=== PATIENT | male | born 1955 | race Caucasian/White ===

== ENCOUNTER 2019-06-10 20:54 | Observation (INO) ==
[2019-06-10] MEDS ORDERED: ONDANSETRON INJ 2 MG/ML 2 ML VIAL IV STA (21:25)
[2019-06-10] MEDS ORDERED: MECLIZINE HCL 25 MG TAB PO STA (21:25)
[2019-06-10] MEDS ORDERED: ACETAMINOPHEN 325 MG TAB PO STA (21:25)
[2019-06-10] MEDS ORDERED: SODIUM CHLORIDE 0.9% 1000ML 1,000 ML IV SCH (21:30)
--- NOTE | 2019-06-10 21:43 | XRay Report ---
XR chest 1V portable CLINICAL HISTORY: weakness COMPARISON STUDY: No previous studies for comparison. FINDINGS: Lung volumes are normal. Lungs are clear. There is no pneumothorax or pleural effusion. Car diac size is at the upper limits of normal. Mediastinal contours are normal. There is no evidence for pulmonary edema. IMPRESSION: No acute cardiopulmonary findings. Electronically signed by: Ancelmo Maria M.D. 06/10/2019 9:42 PM
--- NOTE | 2019-06-10 21:59 | CT Scan Report ---
CT OF THE HEAD WITHOUT CONTRAST CLINICAL HISTORY: dizziness, vertigo COMPARISON STUDY: No previous studies for comparison. CT DOSE: 537.48 mGy.cm TECHNIQUE: Helical axial images of the head were obtained without IV contrast. Automated exposure con trol was utilized for the study. A dose lowering technique was utilized adhering to the principles o f ALARA. FINDINGS: No acute intracranial hemorrhage, midline shift or mass effect is present. The ventricular system is unremarkable. The basilar cisterns are patent. No extra-axial collections are present. Ther e are no findings to suggest acute dural sinus thrombosis or acute territorial infarct. No significan t calvarial abnormalities are present. Mastoid air cells are clear. There is mild ethmoid sinus mucos al thickening. IMPRESSION: No acute intracranial findings. Electronically signed by: Ancelmo Maria M.D. 06/10/2019 9:58 PM
[2019-06-10 22:02] LABS: Basophils # (auto) 0.01 K/uL (0-0.2); Basophils % (auto) 0.1 %; Eosinophils # (auto) 0.18 K/uL (0-0.5); Eosinophils % (auto) 1.2 %; Hematocrit (blood only) 42.7 % (42-52); Hemoglobin 15.2 g/dL (14.0-18.0); Immature Granulocytes # (auto) 0.06 K/uL (0.00-0.02); Immature Granulocytes % (auto) 0.4 %; Lymphocytes # (auto) 1.24 K/uL (1.2-3.4); Lymphocytes % (auto) 8.5 %; Mean Corpuscular Hemoglobin 32.6 pg (25-34); Mean Corpuscular Hgb Conc 35.6 g/dL (32-36); Mean Corpuscular Volume 91.6 fL (80-100); Mean Platelet Volume 9.1 fL (7.4-10.4); Monocytes # (auto) 0.71 K/uL (0.11-0.59); Monocytes % (auto) 4.9 %; Neutrophils # (auto) 12.42 K/uL (1.4-6.5); Neutrophils % (auto) 84.9 %; Platelet Count 228 K/uL (130-400); RDW Coefficient of Variation 12.7 % (11.5-14.5); RDW Standard Deviation 42.3 fL (36.4-46.3); Red Blood Count 4.66 M/uL (4.7-6.1); White Blood Count 14.62 K/uL (4.8-10.8)
[2019-06-10 22:22] LABS: Alanine Aminotransferase 38 U/L (12-78); Albumin Level 3.7 gm/dl (3.4-5.0); Aspartate Aminotransferase 22 U/L (15-37); BUN Creatinine Ratio 27.4 (10-20); Blood Urea Nitrogen 27 mg/dl (7-18); Calcium 9.1 mg/dl (8.5-10.1); Carbon Dioxide 27 mmol/L (21-32); Chloride 105 mmol/L (98-107); Creatinine Clr Calc Pharmacy 86.9 ml/min; Est GFR (African American) 93.4; Est GFR (Non-African American) 80.6; Glucose 111 mg/dl (70-99); Potassium 3.8 mmol/L (3.5-5.1); Sodium 137 mmol/L (136-145)
[2019-06-10 22:33] LABS: Alkaline Phosphatase 92 U/L (45-117); Bilirubin,Total 0.6 mg/dl (0.2-1); Globulin 3.6 gm/dl (2.5-4.0); Total Protein 7.3 gm/dl (6.4-8.2); Troponin I < 0.015 ng/ml (0-0.045)
[2019-06-10] MEDS ORDERED: DiphenhydrAMINE HCL 50 MG/ML VIAL IV STA (23:07)
[2019-06-10] MEDS ORDERED: DEXAMETHASONE **PF** INJ 10 MG/ML VIAL IV ONE (23:07)
[2019-06-10] MEDS ORDERED: PROCHLORPERAZINE 2 ML IV ONE (23:07)
[2019-06-10] MEDS ORDERED: OPTIRAY 320 125ml IV PRN (23:13)
--- NOTE | 2019-06-11 01:01 | Emergency Department Note ---
Entered by Saul Foster acting as a scribe for Lucio Garduno MD History of Present Illness General Chief complaint: Vertigo Stated complaint: DIZZINESS, NAUSEA, WEAKNESS Time Seen by Provider: 06/10/19 21:03 Source: patient Limitations: no limitations History of Present Illness Onset (ago): hour(s) (this afternoon) Location: head Pain Consistency: + constant Quality: + other (spins) Exacerbated By: + other (opening eyes after keeping them closed) Associated symptoms: + denies other symptoms (heart racing) and + other (dry heaving) Treatments prior to arrival: none The patient is a 63 year-old white female w/ PMHx hyperlipidemia who presents to the ED w/ CC of dizziness beginning this afternoon. The patient states he was driving home from work when he started to get dizzy. He states he had lightheadedness. He notes he felt like his head was spinning. He states he got out of his truck and felt wobbly and nauseous. He notes he sat down on a bench for a while and closed his eyes. He states when he opened his eyes he felt more dizzy. He notes he was dry heaving. He notes he felt like he was going to pass out while driving to [facility]. The patient notes he did not get evaluated at [facility] and came by EMS to the ED. He states he did not receive any medications from EMS. He states he feels a little better right now. He states he had a prostate biopsy 4 days ago. The patient denies feeling like his heart was racing and having any concern for exposure of gas or carbon monoxide. 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 He states he was doing heavy lifting today. The patient states he takes cholesterol medic ations. Home Medications Home Medications Medication Instructions Recorded Confirmed Type diphenhydramine HCl [Allergy] 25 mg PO HS PRN 06/10/19 06/10/19 History pravastatin [Pravachol] 40 mg PO QPM 06/10/19 06/10/19 History terbinafine HCl 250 mg PO DAILY 06/10/19 06/10/19 History Allergies Allergy/AdvReac Type Severity Reaction Status Date / Time No Known Allergies Allergy Unverified 06/10/19 21:54 Past Med/Surg History Surgical History (Updated 06/11/19 @ 01:20 by Shavonne Vaca DO) History of hernia repair History of prostate biopsy Family History (Updated 06/11/19 @ 01:20 by Shavonne Vaca DO) Other Colorectal cancer Social History (Updated 06/11/19 @ 01:21 by Shavonne Vaca DO) Preferred Language: Dominican Beliefs That Will Affect Care: None Current Living Situation: Spouse Current Living Situation Comment: lives at home with spouse Feels Safe at Home: Yes Smoking Status: Never smoker Second Hand Exposure: No ; Hx Alcohol Use: No Hx Substance Use: No Review of Systems See HPI for pertinent positives & negatives. and A total of 10 systems reviewed and were otherwise negative Physical Exam Vital Signs Vital Signs - 24 hr 06/10/19 20:54 06/10/19 22:10 06/10/19 23:19 Temperature 36.4 C L Temperature Source Oral Pulse Rate 69 Pulse Rate [Right Finger] 78 79 Respiratory Rate 16 20 20 Respiratory Effort / Characteristics Non-Labored Spontaneous Respiratory Depth Normal Blood Pressure 144/90 H Blood Pressure [Left Arm] 136/86 144/93 H Blood Pressure Mean 108 Blood Pressure Mean [Left Arm] 102 110 Blood Pressure Position [Left Arm] Pulse Oximetry 98 97 95 Oxygen Delivery Method Room Air Room Air Room Air Sepsis Recent Fever Within 48 Hours No Sepsis New/Unexplained Change in Mental Status No Sepsis Action Taken by Nursing No Action Required 06/11/19 00:01 Temperature Temperature Source Pulse Rate Pulse Rate [Right Finger] 78 Respiratory Rate 20 Respiratory Effort / Characteristics Non-Labored Spontaneous Respiratory Depth Normal Blood Pressure Blood Pressure [Left Arm] 153/86 H Blood Pressure Mean Blood Pressure Mean [Left Arm] 108 Blood Pressure Position [Left Arm] Lying Pulse Oximetry 95 Oxygen Delivery Method Room Air Sepsis Recent Fever Within 48 Hours Sepsis New/Unexplained Change in Mental Status Sepsis Action Taken by Nursing GENERAL: Well appearing, well nourished, NAD, non-toxic. Wearing glasses. EYE EXAM: Normal conjunctiva. PERRL, no anisocoria and EOM's grossly intact w/o pain. OROPHARYNX: Moist mucous membranes. Normal dentition. NECK: Supple, no nuchal rigidity, no adenopathy, non-tender. no signs of meningismus. No cartoid bruits. LUNGS: Clear to auscultation. Normal chest wall mechanics. HEART: NSR, no MRG. ABDOMEN: Abdomen soft, non-tender, normo-active bowel sounds, no masses, no rebound or guarding. BACK: No CVA TTP. SKIN: No rashes and no bruising. UPPER EXTREMITIES: Upper extremities are grossly normal. LOWER EXTREMITIES: No pitting edema. No calf pain. NEURO EXAM: Cranial nerves II-XII grossly intact, normal speech. no sensory deficits, normal pronator drift. 5/5 strength throughout. Moves all 4 extremities on command w/o issue. Course Course 2112: The patient was evaluated in room C7, and a complete history and physical examination were performed. Patient was put on the laboratory monitor. 2244: I reevaluated the patient. He does not feel well. Administered Medications Acetaminophen (Tylenol) 650 mg PO Q4H PRN PRN Reason: pain/fever Stop: 07/11/19 01:52 Last Admin: 06/11/19 15:54 Dose: 650 mg Documented by: [id number] Aspirin (Ecotrin Ectab) 81 mg PO DAILY [facility] Stop: 07/11/19 08:59 Last Admin: 06/11/19 08:46 Dose: 81 mg Documented by: [id number] Gadobutrol (Gadavist 65ml) 8.2 ml IV ONCE PRN PRN Reason: Interaction Checking Stop: 06/15/19 03:33 Last Admin: 06/11/19 03:15 Dose: 8.2 ml Documented by: [id number] Ioversol (Optiray 320 125ml) 118 ml IV ONCE PRN PRN Reason: Interaction Checking Stop: 06/14/19 23:12 Last Admin: 06/10/19 23:14 Dose: 118 ml Documented by: [id number] Meclizine HCl (Antivert) 25 mg PO TID PRN PRN Reason: Dizziness or Vertigo Stop: 07/11/19 01:52 Last Admin: 06/11/19 13:30 Dose: 25 mg Documented by: [id number] Admin: 06/11/19 08:46 Dose: 25 mg Documented by: [id number] Ondansetron HCl (Zofran) 4 mg IV Q6H PRN PRN Reason: Nausea Stop: 07/11/19 01:52 Last Admin: 06/11/19 08:32 Dose: 4 mg Documented by: [id number] Terbinafine HCl (Lamisil) 250 mg PO DAILY [facility] Stop: 07/11/19 08:59 Last Admin: 06/11/19 08:46 Dose: 250 mg Documented by: [id number] Discontinued Medications Acetaminophen (Tylenol) 650 mg PO NOW STA Stop: 06/10/19 21:26 Last Admin: 06/10/19 22:08 Dose: 650 mg Documented by: [id number] Aspirin (Aspirin Chew) 324 mg PO NOW STA Stop: 06/11/19 01:57 Last Admin: 06/11/19 01:58 Dose: 324 mg Documented by: [id number] Dexamethasone Sodium Phosphate (Decadron Pf) 10 mg IV NOW ONE Stop: 06/10/19 23:08 Last Admin: 06/10/19 23:19 Dose: 10 mg Documented by: [id number] Diphenhydramine HCl (Benadryl) 25 mg IV NOW STA Stop: 06/10/19 23:08 Last Admin: 06/10/19 23:19 Dose: 25 mg Documented by: [id number] Sodium Chloride (Nss 1000ml) 1,000 mls @ 999 mls/hr IV .Q1H1M RE Stop: 06/10/19 22:30 Last Infusion: 06/10/19 23:11 Dose: 0 mls/hr Documented by: [id number] Admin: 06/10/19 22:08 Dose: 999 mls/hr Documented by: [id number] Prochlorperazine (Compazine) 2 mls @ 1 mls/min IV ONE ONE Stop: 06/10/19 23:08 Last Admin: 06/10/19 23:19 Dose: 1 mls/min Documented by: [id number] Meclizine HCl (Antivert) 25 mg PO NOW STA Stop: 06/10/19 21:26 Last Admin: 06/10/19 22:08 Dose: 25 mg Documented by: [id number] Ondansetron HCl (Zofran) 4 mg IV NOW STA Stop: 06/10/19 21:26 Last Admin: 06/10/19 22:08 Dose: 4 mg Documented by: [id number] Medical Decision Making Differential Diagnosis Differential diagnosis includes etiologies such as benign positional vertigo, dehydration, hypovolemia, anemia, tumor, infection, hypoglycemia, electrolyte abnormalities, cardiac sources, intracerebral event, toxicologic, neurologic, as well as others were entertained. Medical Records Attestation: I reviewed the patient's medical records. Home Medications Current Medication List: was personally reviewed by me Laboratory Data Attestation: I reviewed the patient's lab results. Result diagrams: 06/11/19 02:24 06/11/19 02:24 Lab Results 06/10/19 06/10/19 Range/Units 21:45 21:45 WBC 14.62 H (4.8-10.8) K/uL RBC 4.66 L (4.7-6.1) M/uL Hgb 15.2 (14.0-18.0) g/dL Hct 42.7 (42-52) % MCV 91.6 (80-100) fL MCH 32.6 (25-34) pg MCHC 35.6 (32-36) g/dL RDW Std Deviation 42.3 (36.4-46.3) fL RDW Coeff of Belkis 12.7 (11.5-14.5) % Plt Count 228 (130-400) K/uL MPV 9.1 (7.4-10.4) fL Immature Gran % (Auto) 0.4 % Neut % (Auto) 84.9 % Lymph % (Auto) 8.5 % [place] % (Auto) 4.9 % Eos % (Auto) 1.2 % Baso % (Auto) 0.1 % Immature Gran # (Auto) 0.06 H (0.00-0.02) K/uL Neut # (Auto) 12.42 H (1.4-6.5) K/uL Lymph # (Auto) 1.24 (1.2-3.4) K/uL [place] # (Auto) 0.71 H (0.11-0.59) K/uL Eos # (Auto) 0.18 (0-0.5) K/uL Baso # (Auto) 0.01 (0-0.2) K/uL Sodium 137 (136-145) mmol/L Potassium 3.8 (3.5-5.1) mmol/L Chloride 105 (98-107) mmol/L Carbon Dioxide 27 (21-32) mmol/L Anion Gap 5.0 (3-11) BUN 27 H (7-18) mg/dl Creatinine 0.98 (0.6-1.4) mg/dl Est Cr Clr Drug Dosing 86.9 ml/min Est GFR ( Amer) 93.4 Est GFR (Non-Af Amer) 80.6 BUN/Creatinine Ratio 27.4 H (10-20) Glucose 111 H (70-99) mg/dl Calcium 9.1 (8.5-10.1) mg/dl Total Bilirubin 0.6 (0.2-1) mg/dl AST 22 (15-37) U/L ALT 38 (12-78) U/L Alkaline Phosphatase 92 (45-117) U/L Troponin I < 0.015 (0-0.045) ng/ml Total Protein 7.3 (6.4-8.2) gm/dl Albumin 3.7 (3.4-5.0) gm/dl Globulin 3.6 (2.5-4.0) gm/dl Albumin/Globulin Ratio 1.0 (0.9-2) TSH 2.180 (0.300-4.500) uIu/ml Imaging Data Radiologist's Impression: Radiology results as stated below per my review and the radiologist's interpretation: XR chest 1V portable CLINICAL HISTORY: weakness COMPARISON STUDY: No previous studies for comparison. FINDINGS: Lung volumes are normal. Lungs are clear. There is no pneumothorax or pleural effusion. Cardiac size is at the upper limits of normal. Mediastinal contours are normal. There is no evidence for pulmonary edema. IMPRESSION: No acute cardiopulmonary findings. Electronically signed by: Ancelmo Maria M.D. 06/10/2019 9:[address] OF THE HEAD WITHOUT CONTRAST CLINICAL HISTORY: dizziness, vertigo COMPARISON STUDY: No previous studies for comparison. CT DOSE: 537.48 mGy.cm TECHNIQUE: Helical axial images of the head were obtained without IV contrast. Automated exposure control was utilized for the study. A dose lowering technique was utilized adhering to the principles of ALARA. FINDINGS: No acute intracranial hemorrhage, midline shift or mass effect is present. The ventricular system is unremarkable. The basilar cisterns are patent. No extra-axial collections are present. There are no findings to suggest acute dural sinus thrombosis or acute territorial infarct. No significant calvarial abnormalities are present. Mastoid air cells are clear. There is mild ethmoid sinus mucosal thickening. IMPRESSION: No acute intracranial findings. Electronically signed by: Ancelmo Maria M.D. 06/10/2019 9:[address] angio neck with con, CT angio head w con CLINICAL HISTORY: 63 years-old Male with vertigo, Lward nystagmus, neg CT head. Acute dizziness with vertigo COMPARISON STUDY: Head CT 06/10/2019, brain MRI 06/11/2019 TECHNIQUE: Following the IV administration of 118 mL of Optiray 320, CT angiogram of the head and neck was performed from the aortic arch to the skull base. Images are reviewed in the axial, sagittal, and coronal planes. 3-D MIPS images are created and assessed. IV contrast was administered without complication. All measurements were calculated based on NASCET criteria. A dose lowering technique was utilized adhering to the principles of ALARA. CT DOSE: 630.71 mGy.cm FINDINGS: The imaged opacified pulmonary arterial tree is unremarkable. Aortic arch and imaged bilateral subclavian arteries appear unremarkable. Bilateral common carotid arteries are patent. The right carotid bulb and right ICA are patent and unremarkable. Moderate atheromatous plaque at the left carotid bulb and proximal cervical segment left ICA results in 60% luminal narrowing (image 243 series 4). Mild luminal narrowing of less than 50% involves the [place] cervical segment left ICA at the level of C1, also likely secondary to atheromatous plaque. Bilateral middle and anterior cerebral arteries appear patent. Developmentally diminutive left A1 segment. The vertebral arteries are codominant and appear widely patent. The basilar and posterior cerebral arteries are also patent. Cerebral venous sinuses are patent and unremarkable. No abnormal intracranial enhancement. Age- related involutional changes are noted. Lung apices are clear. Soft tissues of the neck are unremarkable. Mild mucosal thickening of the maxillary and ethmoid sinuses. Degenerative changes are noted throughout the cervical spine. Mastoid air cells are clear. Multilevel deg enerative changes of the cervical spine, most pronounced at C5-C6 and C6-C7. IMPRESSION: 1. Atheromatous plaque of the left carotid bulb and proximal left ICA results in 60% luminal narrowing of the proximal left ICA. 2. Otherwise unremarkable CTA of the head and neck without aneurysm, dissection or proximal branch occlusion identified. 3. Mild paranasal sinus disease. ACT 112: Negative or not required by law. The above report was generated using voice recognition software. It may contain grammatical, syntax or spelling errors. Electronically signed by: Bobby Walton M.D. 06/11/2019 6:41 AM Dictated: 06/11/1934 Transcribed: 06/11/19631 CT angio neck with con, CT angio head w con CLINICAL HISTORY: 63 years-old Male with vertigo, Lward nystagmus, neg CT head. Acute dizziness with vertigo COMPARISON STUDY: Head CT 06/10/2019, brain MRI 06/11/2019 TECHNIQUE: Following the IV administration of 118 mL of Optiray 320, CT angiogram of the head and neck was performed from the aortic arch to the skull base. Images are reviewed in the axial, sagittal, and coronal planes. 3-D MIPS images are created and assessed. IV contrast was administered without complication. All measurements were calculated based on NASCET criteria. A dose lowering technique was utilized adhering to the principles of ALARA. CT DOSE: 630.71 mGy.cm FINDINGS: The imaged opacified pulmonary arterial tree is unremarkable. Aortic arch and imaged bilateral subclavian arteries appear unremarkable. Bilateral common carotid arteries are patent. The right carotid bulb and right ICA are patent and unremarkable. Moderate atheromatous plaque at the left carotid bulb and proximal cervical segment left ICA results in 60% luminal narrowing (image 243 series 4). Mild luminal narrowing of less than 50% involves the Est[place] cervical segment left ICA at the level of C1, also likely secondary to atheromatous plaque. Bilateral middle and anterior cerebral arteries appear patent. Developmentally diminutive left A1 segment. The vertebral arteries are codominant and appear widely patent. The basilar and posterior cerebral arteries are also patent. Cerebral venous sinuses are patent and unremarkable. No abnormal intracranial enhancement. Age- related involutional changes are noted. Lung apices are clear. Soft tissues of the neck are unremarkable. Mild mucosal thickening of the maxillary and ethmoid sinuses. Degenerative changes are noted throughout the cervical spine. Mastoid air cells are clear. Multilevel degenerative changes of the cervical spine, most pronounced at C5-C6 and C6-C7. IMPRESSION: 1. Atheromatous plaque of the left carotid bulb and proximal left ICA results in 60% luminal narrowing of the proximal left ICA. 2. Otherwise unremarkable CTA of the head and neck without aneurysm, dissection or proximal branch occlusion identified. 3. Mild paranasal sinus disease. ACT 112: Negative or not required by law. The above report was generated using voice recognition software. It may contain grammatical, syntax or spelling errors. Electronically signed by: Bobby Walton M.D. 06/11/2019 6:41 AM Dictated: 06/11/19631 Transcribed: 12/18/19 0632 ECG Data Attestation: I personally reviewed and interpreted this ECG as follows: Indication: + other (dizziness) Rate (beats per minute): 69 Rhythm: + normal sinus ECG Intervals/blocks: + Normal QRS, + Normal QT, + Normal MD and + Normal QT-c ECG [place]: + Normal ECG ST segments: no ST depression and no ST elevation ECG Findings: no PACs and no PVCs Blood Pressure Blood Pressure Findings: Elevated blood pressure Blood Pressure Disposition: Referred to patients primary care provider MDM Narrative The patient is a 63 year-old white female w/ PMHx hyperlipidemia who presents to the ED w/ CC of dizziness beginning this afternoon. Patient was seen and evaluated at the bedside. The patient did present with so me nausea and associated dizziness. After further discussion the patient did describe it more as the spins. The patient does have some leftward beating nystagmus but it does extinguish with looking to the right. The patient does not complain of any ear pain and no recent change in elevation or water activities. The patient also denies any sort of exposure i.e. gas or generator inside giving off fumes. The patient had a blood work completed along with an EKG. EKG does not appear to be acutely concerning no signs of ischemia. Troponin is negative. Blood work does show a mild white count with a normal H&H and platelet count. Patient may have some prerenal azotemia. The patient was given first round of medications upon reassessment the patient was nothing much improved so CT angios of the head and neck were ordered. The patient does have a very small amount of stenosis at the left carotid bulb but nothing that is concerning [place] flow-limiting that may be causing his symptoms. Given that the patient is still symptomatic and there has not been significant improvement I did speak the on-call hospitalist agreed to further evaluate treat the patient. Patient was admitted to the medicine service. Impression & Plan Vertigo, Weakness, Nystagmus, Dehydration Discharge Plan Visit Data *Final* Discharge Date/Time: 06/11/19 01:45 Chief Complaint: Vertigo Stated Complaint: DIZZINESS, NAUSEA, WEAKNESS ED Provider: Lucio Garduno Discharge Problem: Vertigo, Weakness, Nystagmus, Dehydration Patient Disposition: Admitted As Inpatient Discharge Instructions Interventions: ED Discharge Assessment Last Done: 06/11/19 01:45 The scribe's documentation has been prepared under my direction and personally reviewed by me in its entirety. I confirm that the note above accurately reflects all work, treatment, procedures, and medical decision making performed by me.
--- NOTE | 2019-06-11 01:32 | History & Physical Report ---
Date of Service June 11, 2019 Assessment & Plan (1) Vertigo: Suspect vertigo, less likely CVA/TIA -Observation to medical floor with telemetry -Check A1C with AM labs -Check MRI brain -ASA 81mg po daily -Continue Pravastatin 40mg po qPM -Meclizine 25mg po TID as needed Present on Admission?: Yes (2) Nystagmus: As above -ASA, Statin -MRI -Meclizine Present on Admission?: Yes (3) Hyperlipidemia: Continue Pravastatin F/E/N - Heplock. Monitor electrolytes. Heart healthy diet as tolerated Ppx - SCDs Code -Full Dispo - Observation to medical floor with telemetry History of Present Illness Chief Complaint: vertigo Primary Care Provider: NO PCP Kristopher Moreno is a 63yo C male with history of HLP presenting with dizziness, blurry vision and nausea. Patient was driving in his car around 18:30 last evening when he developed acute onset of severe dizziness, blurry vision and nausea. He went into a store and sat down for appx 30 minutes but his symptoms persisted. He then went to Urgent Care and was transported to [facility]. Currently still with complaint of dizziness and blurry vision. Difficulty with ambulation. He denies chest pain/palpitations/vomiting/diarrhea/constipation Denies numbness/tingling/weakness/headache Denies ear pain/aural fullness/hearing loss or tinnitus No recent illness, sick contacts or travel No additional complaints ER Course: Tylenol, Dexamethasone, Benadryl, Meclizine, Zofran, Compazine, NSS Allergies Allergy/AdvReac Type Severity Reaction Status Date / Time No Known Allergies Allergy Unverified 06/10/19 21:54 Home Medications Home Medications Medication Instructions Recorded Confirmed Type diphenhydramine HCl [Allergy] 25 mg PO HS PRN 06/10/19 06/10/19 History pravastatin [Pravachol] 40 mg PO QPM 06/10/19 06/10/19 History terbinafine HCl 250 mg PO DAILY 06/10/19 06/10/19 History Past Med/Surg History Medical History (Updated 06/11/19 @ 01:29 by Shavonne Vaca DO) Hyperlipidemia Surgical History (Updated 06/11/19 @ 01:20 by Shavonne Vaca DO) History of hernia repair History of prostate biopsy Family History (Updated 06/11/19 @ 01:20 by Shavonne Vaca DO) Other Colorectal cancer Social History (Updated 06/11/19 @ 01:21 by Shavonne Vaca DO) Preferred Language: Cambodian Feels Safe at Home: Yes Smoking Status: Never smoker Hx Alcohol Use: No Hx Substance Use: No Review of Systems Review of Systems: All systems reviewed & are unremarkable except as noted in HPI & below Physical Exam Physical Exam: General: patient resting comfortably, NAD, non-toxic in appearance, AA&O x 4 Skin: warm, dry, intact, no rashes or lesions HEENT: NC/AT, PERRL, EOMI with horizontal nystagmus to left, anicteric sclera, conjunctiva without injection, external ear normal to inspection and nontender, nares patent, moist mucus membranes, dentition intact, no oropharyngeal lesions, neck supple, trachea midline, no LAD, no thyromegaly, no JVD Heart: +S1/S2, regular, no m/r/g Lungs: equal air entry bilaterally, no rales/rhonchi/wheezes Abd: +BS, soft, NT/ND, no masses/organomegaly/ascites Ext: warm, 2+ pulses in UE/LE bilaterally, no clubbing/cyanosis or edema Neuro: nonfocal, patient AA&O x 4, speech intact, no facial droop, CN II - XII intact, sensation to light touch intact, moving all extremities on command with equal strength 5/5, [id number]-[id number] and mgpu-gr-hxxi intact bilaterally, gait unsteady and wide based Results & Data Vital Signs (Past 12 Hours) Vital Signs Temp Pulse Pulse Resp BP BP Pulse Ox 06/11/19 00:01 78 20 153/86 H 95 06/10/19 23:19 79 20 144/93 H 95 06/10/19 22:10 78 20 136/86 97 06/10/19 20:54 36.4 C L 69 16 144/90 H 98 Laboratory Results Lab Results 06/10/19 06/10/19 Range/Units 21:45 21:45 WBC 14.62 H (4.8-10.8) K/uL RBC 4.66 L (4.7-6.1) M/uL Hgb 15.2 (14.0-18.0) g/dL Hct 42.7 (42-52) % MCV 91.6 (80-100) fL MCH 32.6 (25-34) pg MCHC 35.6 (32-36) g/dL RDW Std Deviation 42.3 (36.4-46.3) fL RDW Coeff of Belkis 12.7 (11.5-14.5) % Plt Count 228 (130-400) K/uL MPV 9.1 (7.4-10.4) fL Immature Gran % (Auto) 0.4 % Neut % (Auto) 84.9 % Lymph % (Auto) 8.5 % [place] % (Auto) 4.9 % Eos % (Auto) 1.2 % Baso % (Auto) 0.1 % Immature Gran # (Auto) 0.06 H (0.00-0.02) K/uL Neut # (Auto) 12.42 H (1.4-6.5) K/uL Lymph # (Auto) 1.24 (1.2-3.4) K/uL [place] # (Auto) 0.71 H (0.11-0.59) K/uL Eos # (Auto) 0.18 (0-0.5) K/uL Baso # (Auto) 0.01 (0-0.2) K/uL Sodium 137 (136-145) mmol/L Potassium 3.8 (3.5-5.1) mmol/L Chloride 105 (98-107) mmol/L Carbon Dioxide 27 (21-32) mmol/L Anion Gap 5.0 (3-11) BUN 27 H (7-18) mg/dl Creatinine 0.98 (0.6-1.4) mg/dl Est Cr Clr Drug Dosing 86.9 ml/min Est GFR ( Amer) 93.4 Est GFR (Non-Af Amer) 80.6 BUN/Creatinine Ratio 27.4 H (10-20) Glucose 111 H (70-99) mg/dl Calcium 9.1 (8.5-10.1) mg/dl Total Bilirubin 0.6 (0.2-1) mg/dl AST 22 (15-37) U/L ALT 38 (12-78) U/L Alkaline Phosphatase 92 (45-117) U/L Troponin I < 0.015 (0-0.045) ng/ml Total Protein 7.3 (6.4-8.2) gm/dl Albumin 3.7 (3.4-5.0) gm/dl Globulin 3.6 (2.5-4.0) gm/dl Albumin/Globulin Ratio 1.0 (0.9-2) TSH 2.180 (0.300-4.500) uIu/ml Diagnostic Findings XR chest 1V portable CLINICAL HISTORY: weakness COMPARISON STUDY: No previous studies for comparison. FINDINGS: Lung volumes are normal. Lungs are clear. There is no pneumothorax or pleural effusion. Cardiac size is at the upper limits of normal. Mediastinal contours are normal. There is no evidence for pulmonary edema. IMPRESSION: No acute cardiopulmonary findings. Electronically signed by: Ancelmo Maria M.D. 06/10/2019 9:42 PM Dictated: 06/10/192140 Transcribed: 06/10/192140 CT OF THE HEAD WITHOUT CONTRAST CLINICAL HISTORY: dizziness, vertigo COMPARISON STUDY: No previous studies for comparison. CT DOSE: 537.48 mGy.cm TECHNIQUE: Helical axial images of the head were obtained without IV contrast. Automated exposure control was utilized for the study. A dose lowering technique was utilized adhering to the principles of ALARA. FINDINGS: No acute intracranial hemorrhage, midline shift or mass effect is present. The ventricular system is unremarkable. The basilar cisterns are patent. No extra-axial collections are present. There are no findings to suggest acute dural sinus thrombosis or acute territorial infarct. No significant calvarial abnormalities are present. Mastoid air cells are clear. There is mild ethmoid sinus mucosal thickening. IMPRESSION: No acute intracranial findings. Electronically signed by: Ancelmo Maria M.D. 06/10/2019 9:58 PM Dictated: 06/10/192154 Transcribed: 06/10/192154 CTA Head - Per STAT-rad - No acute intracranial hemorrhage, mass effect or edema. No evidence of acute cortical stroke. Mild periventricular small vessel ischemic change. No midline shift or hydrocephalus. Mild diffuse parenchymal atrophy for age. Visualized sinuses and mastoid air cells are clear. CTA Nect - Per STAT-rad - left carotid bulb short segment at least moderate narrowing for example on image 243 series 4. No other significant stenosis, thrombosis, aneurysm or dissection Code Status & VTE Plan Code Status Full VTE Prophylaxis Plan VTE Prophylaxis will be ordered: Yes PG Care Time/CCT Total # of Minutes Spent Total Time Spent with Patient: Total time spent is greater than 50% in coordination of care (as documented) at patient's floor/unit and/or counseling patient:
[2019-06-11] MEDS ORDERED: ONDANSETRON INJ 2 MG/ML 2 ML VIAL IV PRN (01:53)
[2019-06-11] MEDS ORDERED: ASPIRIN 81 MG CHEW PO STA (01:56)
[2019-06-11 02:44] LABS: Basophils # (auto) 0.01 K/uL (0-0.2); Basophils % (auto) 0.1 %; Eosinophils # (auto) 0.01 K/uL (0-0.5); Eosinophils % (auto) 0.1 %; Hematocrit (blood only) 41.5 % (42-52); Hemoglobin 14.9 g/dL (14.0-18.0); Immature Granulocytes # (auto) 0.03 K/uL (0.00-0.02); Immature Granulocytes % (auto) 0.2 %; Lymphocytes # (auto) 0.75 K/uL (1.2-3.4); Lymphocytes % (auto) 5.7 %; Mean Corpuscular Hgb Conc 35.9 g/dL (32-36); Mean Platelet Volume 8.8 fL (7.4-10.4); Monocytes # (auto) 0.15 K/uL (0.11-0.59); Monocytes % (auto) 1.1 %; Neutrophils # (auto) 12.27 K/uL (1.4-6.5); Neutrophils % (auto) 92.8 %; Platelet Count 232 K/uL (130-400); RDW Coefficient of Variation 12.6 % (11.5-14.5); RDW Standard Deviation 42.5 fL (36.4-46.3); Red Blood Count 4.51 M/uL (4.7-6.1); White Blood Count 13.22 K/uL (4.8-10.8)
[2019-06-11 02:51] LABS: BUN Creatinine Ratio 24.3 (10-20); Calcium 8.4 mg/dl (8.5-10.1); Creatinine Clr Calc Pharmacy 82.7 ml/min; Est GFR (African American) 100.8; Phosphorus 2.3 mg/dl (2.5-4.9); Potassium 3.9 mmol/L (3.5-5.1)
[2019-06-11] MEDS ORDERED: GADOBUTROL 65ML VIAL IV PRN (03:34)
[2019-06-11 06:20] LABS: Estimated Average Glucose 105 mg/dl; Hemoglobin A1C 5.3 % (4.5-5.6)
--- NOTE | 2019-06-11 06:42 | CT Scan Report ---
CT angio neck with con, CT angio head w con CLINICAL HISTORY: 63 years-old Male with vertigo, Lward nystagmus, neg CT head. Acute dizziness wi th vertigo COMPARISON STUDY: Head CT 06/10/2019, brain MRI 06/11/2019 TECHNIQUE: Following the IV administration of 118 mL of Optiray 320, CT angiogram of the head and nec k was performed from the aortic arch to the skull base. Images are reviewed in the axial, sagittal, a nd coronal planes. 3-D MIPS images are created and assessed. IV contrast was administered without com plication. All measurements were calculated based on NASCET criteria. A dose lowering technique was utilized adhering to the principles of ALARA. CT DOSE: 630.71 mGy.cm FINDINGS: The imaged opacified pulmonary arterial tree is unremarkable. Aortic arch and imaged bilateral subcla vian arteries appear unremarkable. Bilateral common carotid arteries are patent. The right carotid bu lb and right ICA are patent and unremarkable. Moderate atheromatous plaque at the left carotid bulb a nd proximal cervical segment left ICA results in 60% luminal narrowing (image 243 series 4). Mild lum inal narrowing of less than 50% involves the Estel cervical segment left ICA at the level of C1, also likely secondary to atheromatous plaque. Bilateral middle and anterior cerebral arteries appear ortega nt. Developmentally diminutive left A1 segment. The vertebral arteries are codominant and appear wide ly patent. The basilar and posterior cerebral arteries are also patent. Cerebral venous sinuses are p atent and unremarkable. No abnormal intracranial enhancement. Age-related involutional changes are no tree. Lung apices are clear. Soft tissues of the neck are unremarkable. Mild mucosal thickening of the maxi llary and ethmoid sinuses. Degenerative changes are noted throughout the cervical spine. Mastoid air cells are clear. Multilevel degenerative changes of the cervical spine, most pronounced at C5-C6 and C6-C7. IMPRESSION: 1. Atheromatous plaque of the left carotid bulb and proximal left ICA results in 60% luminal narrowin g of the proximal left ICA. 2. Otherwise unremarkable CTA of the head and neck without aneurysm, dissection or proximal branch oc clusion identified. 3. Mild paranasal sinus disease. ACT 112: Negative or not required by law. The above report was generated using voice recognition software. It may contain grammatical, syntax o r spelling errors. Electronically signed by: Bobby Walton M.D. 06/11/2019 6:41 AM
--- NOTE | 2019-06-11 07:17 | Magnetic Resonance Report ---
Brain MRI WITH AND WITHOUT CONTRAST HISTORY: vertigo, ?CVA/TIA TECHNIQUE: Multiplanar multisequence MRI of the brain was performed both before and after the intrave nous administration of contrast. COMPARISON STUDY: Head CT 06/10/2019. FINDINGS: There is no mass, hematoma, midline shift, or acute infarct. Mild mucosal thickening within the paranasal sinuses. The mastoid air cells are clear. The ventricles and sulci demonstrate mild ag e-related involutional changes. Scattered foci of T2 hyperintensity seen within the periventricular a nd subcortical white matter are nonspecific but suggestive of mild microvascular ischemic changes. Th e major vascular flow voids at the skull base are well-maintained. No abnormal enhancement. IMPRESSION: No acute intracranial abnormality. Scattered foci of T2 hyperintensity seen within the periventricula r and subcortical white matter are nonspecific but favor microvascular ischemic change. ACT 112: Negative or not required by law. Electronically signed by: Dean Cortez M.D. 06/11/2019 7:16 AM
[2019-06-11] MEDS: ASPIRIN 81 MG ECTAB PO SCH (08:46)
[2019-06-11] MEDS: TERBINAFINE HCL 250 MG TAB PO SCH (08:46)
[2019-06-11] MEDS: MECLIZINE HCL 25 MG TAB PO PRN ×2 (08:46→13:30)
[2019-06-11] MEDS: ACETAMINOPHEN 325 MG TAB PO PRN (15:54)
--- NOTE | 2019-06-11 19:52 | History & Physical Bridge Note ---
Date of Service June 11, 2019 History & Physical Bridge Note I have examined the patient, reviewed the History & Physical and in the interval since the performance of the History & Physical I have noted the following changes of clinical significance: Patient continues to have significant vertigo that is positional and nausea. He drank some water and orange juice this morning and then threw it all up. He has not eaten anything since then. He does have a mild headache. No weakness or numbness or tingling anywhere. He is never had anything like this before. 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 Denies any chest pain or shortness of breath, no abdominal pain. No difficulty with urination or hematuria and he did have a prostate biopsy last week. No fever/sweats/chills. No sore throat or rhinorrhea. Vitals reviewed Telemetry with normal sinus rhythm with rates in the 70s to 90s, some PVCs. Gen: AAOx3, NAD HEENT: Anicteric sclerae, EOMI, PERRLA, with significant torsional nystagmus with Jose David-Hallpike to the left CV: RRR no mgr nl S1S2 Pulm: CTAB no wcr Abd: +BS soft NT ND no masses or hernias Ext: No edema, 2+ DP pulses Skin: No rashes, warm/dry Neuro: Full strength throughout, DTRs 1+ and symmetric throughout upper and lower extremities, qfoong-to-tjew intact bilaterally, guaf-ba-[id number] intact bilaterally, negative pronator drift of the upper extremities, sensation intact to light touch throughout upper and lower extremities, speech is fluent normal, no expressive or receptive aphasia, cranial nerves II through XII intact, Jose David- Hallpike markedly positive to the left MRI of the brain reviewed and no stroke CT angiogram of the head and neck show 60% stenosis of the proximal left ICA, otherwise normal CT head noncontrast negative Chest x-ray negative ECG normal sinus rhythm WBC mildly elevated but improved from yesterday at 13, otherwise labs normal except mildly low phosphorus and sodium 134 63-year-old male with history of hyperlipidemia and allergic rhinitis, here with acute onset of vertigo and blurry vision Stroke has been ruled out With markedly positive Jose David-Hallpike and classic symptoms of BPPV With moderate carotid artery stenosis on the left-should be monitored as an outpatient-would recommend continuing aspirin 81 mg daily and pravastatin with consideration for increasing dose to 80 mg versus switching to a more effective statin such as atorvastatin or rosuvastatin-we will need outpatient follow-up imaging annually -Continue meclizine as needed -Await PT/OT consultations for demonstration of Montse maneuvers for patient to do at home -We will start IV fluids later if not able to tolerate p.o. -Check Lyme disease titer in the morning -Follow CBC in the morning to see if leukocytosis improves-may have been a stress response demargination leukocytosis -Await neurology consultation-appreciate any further input
--- NOTE | 2019-06-11 20:53 | Neurology Consultation ---
Date of Consultation June 11, 2019 Assessment & Plan (1) BPPV (benign paroxysmal positional vertigo): Kristopher Moreno is a 63 yo man w/ PMH of HLD who p/t [facility] with acute onset of vertigo, nausea and gait imbalance. # Likely BPPV: given his exam findings and history, presentation most c/w BPPV. No stroke, tumor or lesion noted on MRI to cause nystagmus. - PT for Eppley maneuvar - outpatient vestibular therapy referral - meclizine prn (would not take more than 3-4 weeks) # Moderate grade L ICA stenosis: - will need follow up carotid doppler in 6 months (can be done through PCP) - check LDL, if elevated, would start atorvastatin 80mg daily Thank you for this interesting consult. Please text or page with any questions. (2) Hyperlipidemia: History of Present Illness Attending Physician: Belia Baca MD History of Present Illness Kristopher Moreno is a 63 yo man w/ PMH of HLD who p/t [facility] with acute onset of vertigo, nausea and gait imbalance. [employer] ~ 6:30 pm per patient when he was at the store and noted onset of symptoms. Sat outside the store for awhile until he realized that his phone was in the car, so walked "like a drunk" and then drove to a [employer]. Was there for awhile before he was told it wasn't open. Ambulance called for suspected stroke symptoms. On arrival in the ED, CTH showed no hemorrhage or hypodensity. CTA H&N showed moderate grade stenosis of the L ICA but no other high grade stenosis, LVO or aneurysm. MRI brain showed no infarct, tumor or mass lesion, minimal SVID. Labs were relatively unremarkable except for WBC 14.62, BUN 27, glucose 111, A1c 5.3, TSH WNL, troponin negative. His examination today was notable for nystagmus at rest that improved with fi xation, + Jose David Halpike, and horizontal + torsional nystagmus on EOM testing. Allergies Allergy/AdvReac Type Severity Reaction Status Date / Time No Known Allergies Allergy Unverified 06/10/19 21:54 Home Medications Home Medications Medication Instructions Recorded Confirmed Type diphenhydramine HCl [Allergy] 25 mg PO HS PRN 12/17/19 12/17/19 History pravastatin [Pravachol] 40 mg PO QPM 06/10/19 06/10/19 History terbinafine HCl 250 mg PO DAILY 06/10/19 06/10/19 History Patient History Medical History Hyperlipidemia Surgical History History of hernia repair History of prostate biopsy Family History Other Colorectal cancer Social History Preferred Language: Australian Beliefs That Will Affect Care: None Current Living Situation: Spouse Current Living Situation Comment: lives at home with spouse Feels Safe at Home: Yes Smoking Status: Never smoker Second Hand Exposure: No ; Hx Alcohol Use: No Hx Substance Use: No Review of Systems Review of Systems: 14 point review of systems completed and negative except as in HPI. Physical Exam Physical Exam: General Exam: GEN: NAD, sitting in chair. HEENT: No conjunctival injection, no rhinorrhea. CV: RRR, no peripheral edema PULM: Nonlabored respirations on room air. Neuro Exam: MS: Awake and Alert. Oriented to person, place, and date. Speech fluent and appropriate without dysarthria or paraphasic errors. Language intact including naming, comprehension, repetition. Cognition and memory grossly intact. Attention intact. No neglect. CN: Visual ann full. No extinction to double simultaneous stimuli. No optic disc edema on fundoscopic exam. PERRLA OU. EOMI with horizontal/torsional nystagmus. Facial sensation intact to LT. Facial muscles full and symmetric. Hearing intact to conversation. Uvula midline with symmetric palatal elevation. Shoulder shrug normal. Tongue midline. Decrease in nystagmus with visual fixati on. + Wheaton-Hallpike MOTOR: Normal bulk and tone. No pronator drift. BUE strength 5/5 at deltoids, biceps, triceps, wrist flexors and extensors, and finger flexors bilaterally. BLE strength 5/5 at iliopsoas, hamstrings, quadriceps, tibialis anterior, and gastrocnemius bilaterally. REFLEXES: 1+ at biceps, triceps, brachioradialis, patella and absent Achilles bilaterally. Flexor plantar responses bilaterally. SENSORY: Intact to LT without extinction to double simultaneous stimuli. Vibration and pinprick intact throughout. COORDINATION: No dysmetria or ataxia on emoiyt-kl-bghv and ghpl-ds-iiey bila terally. Normal Toro bilaterally. GAIT: Normal gait and arm swing. Normal Romberg. Results & Data Vital Signs (Past 12 Hours) Vital Signs Temp Pulse Pulse Resp BP Pulse Ox 06/11/19 20:07 36.5 C 84 18 111/66 92 06/11/19 15:24 36.5 C 82 85 18 123/70 93 06/11/19 11:22 36.6 C 52 L 17 128/68 96 PG Care Time/CCT Total # of Minutes Spent Total Time Spent with Patient: Total time spent is greater than 50% in coordination of care (as documented) at patient's floor/unit and/or counseling patient:
[2019-06-11] MEDS ORDERED: PRAVASTATIN SOD 40 MG TAB PO SCH (21:00)
[2019-06-12 05:55] LABS: Basophils # (auto) 0.02 K/uL (0-0.2); Basophils % (auto) 0.1 %; Eosinophils # (auto) 0.02 K/uL (0-0.5); Eosinophils % (auto) 0.1 %; Hematocrit (blood only) 43.3 % (42-52); Hemoglobin 15.2 g/dL (14.0-18.0); Immature Granulocytes # (auto) 0.04 K/uL (0.00-0.02); Immature Granulocytes % (auto) 0.2 %; Lymphocytes # (auto) 1.79 K/uL (1.2-3.4); Mean Corpuscular Hemoglobin 32.8 pg (25-34); Mean Corpuscular Hgb Conc 35.1 g/dL (32-36); Mean Corpuscular Volume 93.3 fL (80-100); Mean Platelet Volume 8.9 fL (7.4-10.4); Monocytes # (auto) 1.49 K/uL (0.11-0.59); Monocytes % (auto) 7.5 %; Neutrophils # (auto) 16.48 K/uL (1.4-6.5); Neutrophils % (auto) 83.1 %; Platelet Count 273 K/uL (130-400); RDW Coefficient of Variation 12.8 % (11.5-14.5); RDW Standard Deviation 43.6 fL (36.4-46.3); Red Blood Count 4.64 M/uL (4.7-6.1); White Blood Count 19.84 K/uL (4.8-10.8)
[2019-06-12 06:30] LABS: BUN Creatinine Ratio 21.2 (10-20); Calcium 8.6 mg/dl (8.5-10.1); Creatinine Clr Calc Pharmacy 82.7 ml/min; Est GFR (African American) 100.8; Potassium 3.8 mmol/L (3.5-5.1)
[2019-06-12 07:07] LABS: Lyme Ab IgG w/WB Rflx Negative (Negative); Lyme Ab IgM w/WB Rflx Negative (Negative)
[2019-06-12] MEDS: ASPIRIN 81 MG ECTAB PO SCH (08:01)
[2019-06-12] MEDS: TERBINAFINE HCL 250 MG TAB PO SCH (08:01)
[2019-06-12] MEDS: MECLIZINE HCL 25 MG TAB PO PRN (08:15)
[2019-06-12] MEDS: ACETAMINOPHEN 325 MG TAB PO PRN (08:15)
[2019-06-12 10:34] LABS: Chol HDL Ratio 5; Cholesterol 222 mg/dl (0-200); HDL Cholesterol 46 mg/dl; LDL Cholesterol Calculated 148 mg/dl; Triglycerides 140 mg/dl (0-150); VLDL Cholesterol 28 mg/dl
--- NOTE | 2019-06-12 14:02 | Discharge Summary ---
Date of Service June 12, 2019 Admission HPI Per Admitting Provider Kristopher Moreno is a 63yo C male with history of HLP presenting with dizziness, blurry vision and nausea. Patient was driving in his car around 18:30 last evening when he developed acute onset of severe dizziness, blurry vision and nausea. He went into a store and sat down for appx 30 minutes but his symptoms persisted. He then went to Urgent Care and was transported to [facility]. Currently still with complaint of dizziness and blurry vision. Difficulty with ambulation. He denies chest pain/palpitations/vomiting/diarrhea/constipation Denies numbness/tingling/weakness/headache Denies ear pain/aural fullness/hearing loss or tinnitus No recent illness, sick contacts or travel No additional complaints ER Course: Tylenol, Dexamethasone, Benadryl, Meclizine, Zofran, Compazine, NSS Principal Diagnosis BPPV Discharge Exam Gen: AAOx3, NAD HEENT: Anicteric sclerae, EOMI, PERRLA, rotary nystagmus now much improved CV: RRR no mgr nl S1S2 Pulm: CTAB no wcr Abd: +BS soft NT ND no masses or hernias Ext: No edema, 2+ DP pulses Skin: No rashes, warm/dry Neuro: Full strength throughout Discharge Data Allergies Allergy/AdvReac Type Severity Reaction Status Date / Time No Known Allergies Allergy Unverified 06/10/19 21:54 Consultations 06/11/19 00:37 ED Decision to Admit Stat 06/11/19 09:39 Consult Neurology Routine Ordered Studies 06/10/19 21:25 CT head/brain wo con Stat 06/10/19 23:07 CT angio head w con Stat CT angio neck with con Stat 06/11/19 01:53 MR brain wo/w con Routine CXR Hospital Course (1) Vertigo: Suspect vertigo, less likely CVA/TIA -Observation to medical floor with telemetry-no arrhythmias noted MRI of the brain reviewed and no stroke CT angiogram of the head and neck show 60% stenosis of the proximal left ICA, otherwise normal CT head noncontrast negative Chest x-ray negative ECG normal sinus rhythm WBC mildly elevated on admission and then went up after receiving decadron in the ER 63-year-old male with history of hyperlipidemia and allergic rhinitis, here with acute onset of vertigo and blurry vision Stroke has been ruled out With markedly positive Washington-Hallpike and classic symptoms of BPPV now much improved at time of discharge after Sherrell maneuvers performed with Physical Therapist With moderate carotid artery stenosis on the left-should be monitored as an outpatient-would recommend continuing aspirin 81 mg daily and change pravastatin to a more effective statin such as atorvastatin 80mg qhs-will need outpatient follow-up imaging of carotids Appreciate Neurology consultation who agrees with dx of BPPV HgbA1C normal at 5.3% -Continue meclizine as needed -Lyme disease titer negative stable for dc to home on ASA 81mg daily and atorvastatin 80mg qhs F/u with PCP and can do outpt PT if need be -continue home Sherrell maneuvers (2) Nystagmus: As above (3) Hyperlipidemia: as above Total Time Total Time Spent Total Time Spent (In Minutes): 35 min Total Time Includes: Examination of the Patient, Discharge Planning and Medication Reconciliation Discharge Plan Discharge Items Patient Disposition: Home - Self-Care Reason For Visit: VERTIGO Discharge Diagnosis: Benign paroxysmal positional vertigo (BPPV) Condition on Discharge: Good Goals: You have been hospitalized for an acute medical problem. During your stay at [facility], we have made an effort to correct the problem that brought you to the hospital while keeping you as comfortable as possible. Medications were used to bring your condition under control and your discharge instructions will include directions for any medications you should take after leaving the hospital. Please make sure you see your Primary Care Provider as part of your follow up plan. Activity: As commented below Activity Comment: Remain out of work until dizziness completely resolved Lifting: Gradually increase as tolerated Bathing: No limitations Exercise/Sports: Gradually increase as tolerated Driving/Machine Use: Resume after dizziness resolved Weightbearing: Full weightbearing Non-emergency contact: Primary Care Provider Call non-emergency contact if: you have any medication questions and your symptoms worsen Follow-up/Referrals: Harrison Mckeon, DO [Outside Practitioners] - PCP,NO [Primary Care Provider] - Diet: Heart Healthy Addtl Attending Provider Instructions: You were admitted for dizziness and were found to have BPPV (benign paroxysmal positional vertigo). This was treated with meclizine medication and with Sherrell maneuvers by Physical Therapy. You were given a prescription for outpatient PT if you feel you need it. You can continue to do Sherrell maneuvers on your own at home. You had a brain MRI that was NEGATIVE for stroke, but your CT angiogram of the arteries of the neck did show a 60% blockage of the left carotid artery. You were started on a baby aspirin daily for this and your pravastatin was switched to more intense statin drug called atorvastatin. You should have a follow up ultrasound of the carotid arteries in 6 months. Please follow up with your PCP within 1-2 weeks. Pending Studies at Discharge: No Stand-Alone Forms: My [facility] Medications and DC Order Prescriptions: New aspirin [Ecotrin Low Strength] 81 mg Tablet,Delayed Release (Dr/Ec) 81 mg PO DAILY Qty: 30 RF: 0 meclizine 25 mg Tablet 25 mg PO TID PRN (Reason: dizziness) Qty: 15 RF: 0 atorvastatin 80 mg tablet 80 mg PO HS Qty: 30 RF: 0 Continued terbinafine HCl 250 mg tablet 250 mg PO DAILY RF: 0 diphenhydramine HCl [Allergy] 25 mg Tablet 25 mg PO HS PRN (Reason: ALLERGIES) RF: 0 Discontinued pravastatin [Pravachol] 40 mg tablet 40 mg PO QPM RF: 0 Discharge Orders: Discharge Order (Routine); Ordered 06/12/19 Ordered By: Belia Baca Admission Data Admit Date/Time: 06/11/19 01:12 Attending Provider: Belia Baca Admit Provider: Shavonne Vaca Primary Care Provider: PCP,NO Other Providers: Shavonne Vaca ; Sarah Flores Other Interventions: Discharge Summary Assessment (RN) Last Done: 06/12/19 14:43 DC Date/Time DO NOT enter until pt leaves facility: 06/12/19 15:28
== END 2019-06-12 15:28 | disposition home or self-care (01) ==
LOC: 2N 20:54 → ED 20:54 → SUATTDRO 06-11 01:12 → 2N 06-11 01:45